=== PATIENT | male | born 1955 | race Two or more races ===

== ENCOUNTER 2021-05-14 06:44 | Day surgery (SDC) | payer OTHER | END 2021-05-14 12:45 | disposition home or self-care (01) | LOC: AMB-ENDOS 06:44 | PROVIDERS: ATTEND Colon & Rectal Surgery | DX: K62.89 Other specified diseases of anus and rectum (principal); K64.2 Third degree hemorrhoids; Z20.822 Contact with and (suspected) exposure to COVID-19 ==

== ENCOUNTER 2021-07-06 10:30 | Inpatient (IN) | payer OTHER ==
[~2021-07-06] VITALS: Ht 180.3 cm; Wt 81.2 kg
[2021-07-06] MEDS ORDERED: METFORMIN HCL500 M3 PO (13:11)
[2021-07-06] MEDS ORDERED: GLIMEPIRIDE4 M1 PO (13:11)
[2021-07-06] MEDS ORDERED: IRBESARTAN-HCT1 EACH PO (13:12)
[2021-07-14] MEDS ORDERED: LATANOPROST2.5 ML (08:07)
[2021-07-14] MEDS ORDERED: TIMOLOL MALEATE5 M4 (08:07)
[2021-07-14] MEDS ORDERED: SIMVASTATIN20 MG (08:07)
[2021-07-14] MEDS ORDERED: OMEPRAZOLE20 MG (08:08)
[2021-07-14] MEDS ORDERED: METFORMIN HCL1000 M3 (08:08)
[2021-07-14] MEDS ORDERED: CAPECITABINE500 MG (08:08)
== END 2021-07-16 19:06 | disposition home or self-care (01) | DRG 374 ==
LOC: O/R 07-13 07:37 → SURH 07-13 07:37
PROVIDERS: ADMIT Colon & Rectal Surgery; ATTEND Colon & Rectal Surgery
DX: C20 Malignant neoplasm of rectum (principal); J18.9 Pneumonia, unspecified organism; J95.88 Other intraoperative complications of respiratory system, not elsewhere classified; R09.02 Hypoxemia; Z20.822 Contact with and (suspected) exposure to COVID-19; Z53.09 Procedure and treatment not carried out because of other contraindication
CPT/HCPCS: 71275

== ENCOUNTER 2021-08-04 09:50 | Outpatient (CLI) | payer OTHER ==
[~2021-08-04 09:50] MED LIST: CAPECITABINE500 MG; GLIMEPIRIDE4 M1 PO; IRBESARTAN-HCT1 EACH PO; LATANOPROST2.5 ML; METFORMIN HCL1000 M3; METFORMIN HCL500 M3 PO; OMEPRAZOLE20 MG; SIMVASTATIN20 MG; TIMOLOL MALEATE5 M4
== END 2021-08-04 10:02 | disposition home or self-care (01) ==
LOC: TOM 09:50
PROVIDERS: ATTEND Internal Medicine Pulmonary Disease
DX: I70.0 Atherosclerosis of aorta (principal)

== ENCOUNTER 2021-09-30 10:15 | Inpatient (IN) | payer OTHER ==
[~2021-09-30] VITALS: Ht 180.3 cm; Wt 80.7 kg
[2021-10-06] MEDS ORDERED: IRBESARTAN-HCT1 EACH (13:04)
[2021-10-06] MEDS ORDERED: SIMVASTATIN20 MG (13:04)
[2021-10-06] MEDS ORDERED: OMEPRAZOLE20 MG (13:04)
[2021-10-06] MEDS ORDERED: CAPECITABINE500 MG (13:06)
[2021-10-16] MEDS ORDERED: AMOX-CLAV 875-1 EACH PO (11:26)
[2021-10-16] MEDS ORDERED: PERCOCET 5-3251 EACH PO (11:27)
== END 2021-10-16 13:38 | disposition home or self-care (01) | DRG 330 ==
LOC: SURH 10-05 10:15 → O/R 10-05 10:41 → SURH 10-05 10:41
PROVIDERS: ADMIT Colon & Rectal Surgery; ATTEND Colon & Rectal Surgery
PROC: 0D1N4Z4 Bypass Sigmoid Colon to Cutaneous, Percutaneous Endoscopic Approach (ICD-10-PCS; 2021-10-05)
PROC: 0DTP4ZZ Resection of Rectum, Percutaneous Endoscopic Approach (ICD-10-PCS; 2021-10-05)
PROC: 0DTQ4ZZ Resection of Anus, Percutaneous Endoscopic Approach (ICD-10-PCS; 2021-10-05)
PROC: 07BC4ZZ Excision of Pelvis Lymphatic, Percutaneous Endoscopic Approach (ICD-10-PCS; 2021-10-05)
PROC: 0DBN4ZZ Excision of Sigmoid Colon, Percutaneous Endoscopic Approach (ICD-10-PCS; principal; 2021-10-05 11:00)
DX: C20 Malignant neoplasm of rectum (principal); K92.1 Melena; C19 Malignant neoplasm of rectosigmoid junction; K56.7 Ileus, unspecified; E11.65 Type 2 diabetes mellitus with hyperglycemia; I10 Essential (primary) hypertension; R59.0 Localized enlarged lymph nodes